=== PATIENT | male | born 1970 | race Caucasian/White ===

== ENCOUNTER 2017-12-26 14:00 | Outpatient (CLI) | payer MEDICAID | END 2017-12-26 14:01 | disposition critical access hospital (66) | LOC: EMS 14:00 | PROVIDERS: ATTEND Surgery | DX: S01.81XA Laceration without foreign body of other part of head, initial encounter (principal); W17.89XA Other fall from one level to another, initial encounter; Y93.H2 Activity, gardening and landscaping; Y92.59 Other trade areas as the place of occurrence of the external cause | CPT/HCPCS: A0425; A0429 ==

== ENCOUNTER 2017-12-26 14:43 | Emergency (ER) | payer MEDICAID ==
[2017-12-26] MEDS ORDERED: TETANUS/DIPHTHERIA/PERTUSSIS 0.5 ML SYRINGE IM ONE (15:15)
--- NOTE | 2017-12-26 15:16 | ED Physician Documentation ---
History of Present Illness - Stated complaint Stated Complaint: GLF - Chief complaint Chief Complaint: General - History obtained from History obtained from: Patient - History of Present Illness Timing: Other (Working and fell backward, hit back of head with poss LOC and amnesia. Mod headache. No N/V.) - Additonal information Additional information: Tetanus status is unknown Review of Systems Constitutional: denies: Fever, Chills Throat: reports: Reviewed and negative Cardiac: reports: Reviewed and negative Respiratory: reports: Reviewed and negative PD PAST MEDICAL HISTORY - Past Medical History Past Medical History: Yes Psych: Depression - Past Surgical History Past Surgical History: Yes - Present Medications Home Medications: Ambulatory Orders Medication Instructions Recorded Confirmed HYDROcod/ACETAM 5/325 [[place] 5/325] 1 - 2 ea PO Q6H PRN #7 tablet 12/26/17 - Allergies Allergies/Adverse Reactions: Allergies Allergy/AdvReac Type Severity Reaction Status Date / Time No Known Drug Allergies Allergy Verified 07/22/16 22:54 - Social History Does the pt smoke?: Yes Smoking Status: Current every day smoker Does the pt drink ETOH?: Yes Does the pt have substance abuse?: No - Immunizations Immunizations are current?: Yes Immunizations: TDAP >10years/unknown - POLST Patient has POLST: No PD ED PE NORMAL - Vitals Vital signs reviewed: Yes - General General: Alert and oriented X 3, No acute distress - HEENT HEENT: PERRL, EOMI, Other (He has a 2 cm occipital laceration) - Neck Neck: Supple, no meningeal sign, No bony TTP - Cardiac Cardiac: RRR, No murmur - Respiratory Respiratory: No respiratory distress, Clear bilaterally - Abdomen Abdomen: Normal bowel sounds, Soft, Non tender - Extremities Extremities: No edema, No calf tenderness / cord - Neuro Neuro: Alert and oriented X 3, Normal speech Eye Opening: Spontaneous Motor: Obeys Commands Verbal: Oriented GCS Score: 15 - Psych Psych: Normal mood, Normal affect Results - Vitals Vitals: Vital Signs - 24 hr 12/26/17 14:48 Temperature 36.5 C Heart Rate 101 H Respiratory 18 Rate Blood Pressure 106/93 H O2 Saturation 97 Oxygen O2 Source Room air - Rads (name of study) CT Head Radiology: EMP read contemporaneously (normal) Procedures - Laceration (location) Occiput Length in cm: 2 Wound type: Linear Anesthesia: Lidocaine 1%, With bicarb Wound Preparation: Irrigated copiously NS Skin layer closure: Lisa (3) Other: Patient tolerated well, Tetanus booster given Complexity: Simple Departure - Departure Disposition: 01 Home, Self Care Clinical Impression: Occipital scalp laceration Qualifiers: Encounter type: initial encounter Qualified Code(s): S01.01XA - Laceration without foreign body of scalp, initial encounter Head injury Qualifiers: Encounter type: initial encounter Qualified Code(s): S09.90XA - Unspecified injury of head, initial encounter Condition: Good Record reviewed to determine appropriate education?: Yes Instructions: ED Head Injury Closed Prescriptions: HYDROcod/ACETAM 5/325 [[place] 5/325] 1 - 2 ea PO Q6H PRN #7 tablet PRN Reason: Pain Comments: Come back for any signs of infection which would include: Redness, swelling, drainage, increased pain, or fevers. Follow-up with your physician in 7-10 days for staple removal.
[2017-12-26] MEDS ORDERED: BUFFERED LIDOCAINE 10 ML SYRINGE SUBQ STA (15:17)
[2017-12-26] MEDS ORDERED: HYDROcod/ACETAM 5/325 MG TABLET PO STA (15:17)
--- NOTE | 2017-12-26 15:34 | CT Report ---
EXAM: CT HEAD EXAM DATE: 12/26/2017 03:24 PM. CLINICAL HISTORY: Head inj. COMPARISON: 08/08/2013. TECHNIQUE: Multiaxial CT images were obtained from the foramen magnum to the vertex. Reformats: Coron al. IV contrast: None. In accordance with CT protocol optimization, one or more of the following dose reduction techniques w ere utilized for this exam: automated exposure control, adjustment of mA and/or KV based on patient s ize, or use of iterative reconstructive technique. FINDINGS: Parenchyma: No intraparenchymal hemorrhage. No evidence of mass, midline shift, or CT findings of inf arction. Sexton-white differentiation is distinct. Extraaxial Spaces: Normal for age. No subdural or epidural collections. Ventricles: Normal in size and position. Sinuses and Orbits: Imaged paranasal sinuses, orbits, and mastoids show no significant abnormality. Bones: Unremarkable. Other: None. IMPRESSION: Normal head CT. [facility] Referring Provider Line: [phone] SITE ID: [id number]
[2017-12-26 16:33] VITALS: BP 121/86
== END 2017-12-26 16:35 | disposition home or self-care (01) ==
LOC: EDUNIT# → ED 14:43
DX: S01.01XA Laceration without foreign body of scalp, initial encounter (principal); S09.90XA Unspecified injury of head, initial encounter; W01.0XXA Fall on same level from slipping, tripping and stumbling without subsequent striking against object, initial encounter; Y93.H2 Activity, gardening and landscaping; Y99.0 Civilian activity done for income or pay; Z23 Encounter for immunization; F17.200 Nicotine dependence, unspecified, uncomplicated
CPT/HCPCS: 12001; 70450; 90471; 90715; 99283; A9270

== ENCOUNTER 2018-03-01 15:35 | Outpatient (CLI) | payer OTHER | END 2018-03-01 15:36 | disposition critical access hospital (66) | LOC: EMS 15:35 | PROVIDERS: ATTEND Surgery | DX: S49.92XA Unspecified injury of left shoulder and upper arm, initial encounter (principal); W18.39XA Other fall on same level, initial encounter; Y92.032 Bedroom in apartment as the place of occurrence of the external cause | CPT/HCPCS: A0425; A0427 ==

== ENCOUNTER 2018-03-01 15:53 | Emergency (ER) | payer MEDICAID, OTHER ==
--- NOTE | 2018-03-01 16:29 | ED Physician Documentation ---
PD HPI UPPER EXT INJURY - Stated complaint Stated Complaint: HBD/FALL - Chief complaint Chief Complaint: Ext Problem - History obtained from History obtained from: Patient, EMS - History of Present Illness Location: Left, Shoulder Type of injury: Fall Where injury occurred: Home Timing - onset: Today Timing - duration: Hours (1) Timing - details: Abrupt onset Pain level max: 10 Pain level now: 10 Improved by: Rest Worsened by: Moving, Palpating Associated symptoms: No: Weakness, Numbness, Tingling, Swelling, Discolored Contributing factors: No: Anticoagulated, Prior ortho surgery Similar symptoms before: Has not had sx before Recently seen: Not recently seen - Additonal information Additional information: states that he fell against the wall and hurt his left shoulder. now increased pain. Review of Systems Ten Systems: 10 systems reviewed and negative Constitutional: denies: Fever, Chills Nose: denies: Rhinorrhea / runny nose, Congestion Throat: denies: Sore throat Respiratory: denies: Cough GI: denies: Nausea, Vomiting, Diarrhea Musculoskeletal: denies: Neck pain, Back pain Neurologic: denies: Focal weakness, Numbness, Confused, Headache, Head injury, LOC PD PAST MEDICAL HISTORY - Past Medical History Past Medical History: Yes Psych: Depression Other Past Medical History: Patient denies illness - Past Surgical History Past Surgical History: Yes - Present Medications Home Medications: Ambulatory Orders Medication Instructions Recorded Confirmed Hydrocodone/Acetaminophen 1 - 2 each PO Q6H PRN #14 tablet 03/01/18 [Hydrocodon-Acetaminophen 5-325] - Allergies Allergies/Adverse Reactions: Allergies Allergy/AdvReac Type Severity Reaction Status Date / Time No Known Drug Allergies Allergy Verified 03/01/18 16:05 - Living Situation Living Arrangement: reports: At home - Social History Does the pt smoke?: Yes Smoking Status: Current every day smoker Does the pt drink ETOH?: Yes ETOH Use: Beer Does the pt have substance abuse?: No - Immunizations Immunizations are current?: Yes Immunizations: TDAP >10years/unknown - POLST Patient has POLST: No PD ED PE NORMAL - Vitals Vital signs reviewed: Yes - General General: Alert and oriented X 3, No acute distress - HEENT HEENT: Atraumatic, PERRL, Moist mucous membranes - Neck Neck: Supple, no meningeal sign, No bony TTP - Cardiac Cardiac: RRR, Strong equal pulses - Respiratory Respiratory: No respiratory distress, Clear bilaterally - Abdomen Abdomen: Soft, Non tender, Non distended - Back Back: No spinal TTP - Derm Derm: Warm and dry - Extremities Extremities: Other (deformity and TTP over the L shoulder. NVI. axillary nerve intact) - Neuro Neuro: Alert and oriented X 3, wound treatment rn 2-12 intact, No motor deficit, No sensory deficit, Normal speech - Psych Psych: Normal mood, Normal affect Results - Vitals Vitals: Oxygen O2 Source Nasal cannula - Rads (name of study) L shoulder xray 1 Radiology: Prelim report reviewed, EMP read contemporaneously, See rad report ( Anterior shoulder dislocation with comminuted fracturing of the proximal humerus. Bony Bankart lesion not excluded) L shoulder xray 2 Radiology: Prelim report reviewed, EMP read contemporaneously, See rad report ( persistent dislocation) L shoulder xray 3 Radiology: Prelim report reviewed, EMP read contemporaneously, See rad report ( Successful reduction of the shoulder as well as the acute Hill-Sachs fracture fragments.) Procedures - Reduction Body part reduced: Left, Shoulder Fracture or dislocation: Dislocation (with hill sachs fracture) Anesthesia: Conscious sedation, Dilaudid, Propofol Shoulder reduction technique: Scapular manipulation, [place] / ext rotation, Traction - counter tract Reduction aftercare: Patient tolerated well, Unable to reduce - Procedural sedation Sedation prep: Informed consent, Time out completed, Last meal (0900), PE performed, AHA 1 - healthy, IV O2 monitor, ET CO2 monitor, RT present Sedation medications: propofol, given by MD Patient status during sedation: Vitals remained stable, Maintained airway, Recovered uneventfully, Other (no complications) Sedation recovery: Recovered uneventfully, Other (time in sedation 15 mintues) PD MEDICAL DECISION MAKING - ED course Complexity details: reviewed results, re-evaluated patient, considered differential, d/w patient, d/w [employer] consultant ED course: Patient is a 47-year-old male who presents to the emergency department with a left shoulder dislocation and Hill-Sachs deformity. Discussed the case with Dr. Meneses and attempted a closed reduction with propofol. Unable to reduce the shoulder. Therefore Dr. Meneses came in and had sedation and paralysis with anesthesia present. The shoulder was able to be reduced by Dr. Meneses. Placed in a sling. Neurovascularly intact including the axillary nerve. Will follow up with orthopedics. Patient counseled regarding signs and symptoms for which I believe and urgent re-evaluation would be necessary. Patient with good understanding of and agreement to plan and is comfortable going home at this time This document was made in part using voice recognition software. While efforts are made to proofread this document, sound alike and grammatical errors may occur. - Sepsis Event Vital Signs: Oxygen O2 Source Nasal cannula Departure - Departure Disposition: 01 Home, Self Care Clinical Impression: Shoulder dislocation Qualifiers: Encounter type: initial encounter Laterality: left Qualified Code(s): S43.005A - Unspecified dislocation of left shoulder joint, initial encounter Fracture of humeral head, closed Qualifiers: Encounter type: initial encounter Laterality: left Qualified Code(s): S42.292A - Other displaced fracture of upper end of left humerus, initial encounter for closed fracture Condition: Good Instructions: ED Dislocation Shoulder Redu Follow-Up: [facility] [Provider Group] Jay Meneses MD [Provider Admit Priv/Credential] - Within 1 week Prescriptions: Hydrocodone/Acetaminophen [Hydrocodon-Acetaminophen 5-325] 1 - 2 each PO Q6H PRN #14 tablet PRN Reason: pain Comments: Wear the sling until released by Dr. Meneses. Return if you worsen. Do not drink alcohol or drive while on narcotic pain medicine. Note that many narcotic pain relievers also contain tylenol/acetaminophen. Please ensure that your total dose of acetaminophen from all sources does not exceed 3 grams (3000mg) per day. You may constipated on this medication, take a stool softener such as "Colace" twice a day while you are on it. Also recommend a myqd-iql-[id number] laxative such as senna or MiraLAX any day that you do not have a bowel movement. If you received narcotic pain medication in the emergency department, do not drive or operate machinery for the next 24 hours. Discharge Date/Time: 03/01/18 21:19
[2018-03-01] MEDS ORDERED: HYDROmorphone 1 MG/ML CARPUJECT IVP STA ×2 (16:54→19:53)
--- NOTE | 2018-03-01 17:12 | XRAY Report ---
Procedure Date: 03/01/2018 Accession Number: [id number] / [id number] Procedure: XR - Shoulder 2 View LT CPT Code: FULL RESULT: EXAM: LEFT SHOULDER RADIOGRAPHY EXAM DATE: 03/01/2018 04:44 PM. CLINICAL HISTORY: FALL, LEFT SHOULDER PAIN. COMPARISON: None. TECHNIQUE: 2 views. FINDINGS: There is an anterior shoulder sulcation with comminuted fracturing of the proximal humerus. Bony Bankart lesion not completely excluded. IMPRESSION: There is an anterior shoulder sulcation with comminuted fracturing of the proximal humerus. Bony Bankart lesion not completely excluded. [facility]
[2018-03-01] MEDS ORDERED: PROPOFOL 200 MG/20 ML VIAL IVP ONE ×2 (19:30→20:27)
[2018-03-01] MEDS ORDERED: PROPOFOL 200 MG/20 ML VIAL IVP STA (19:35)
--- NOTE | 2018-03-01 19:55 | XRAY Report ---
Procedure Date: 03/01/2018 Accession Number: [id number] / [id number] Procedure: XR - Shoulder 1 View LT CPT Code: FULL RESULT: EXAM: LEFT SHOULDER RADIOGRAPHY. EXAM DATE: 03/01/2018 07:48 PM. CLINICAL HISTORY: Dislocation, post reduction?. COMPARISON: 02/21/2018. TECHNIQUE: 1 views. FINDINGS: Bones: Cortical irregularity of the inferior margin of the glenoid is noted. There is a large displaced fracture fragment of the left humerus greater tuberosity. The left acromion and scapula are otherwise intact. Joints: Persistent anterior inferior dislocation of the left glenohumeral joint. Soft tissues: The visualized hemithorax is unremarkable. No soft tissue swelling. IMPRESSION: Persistent anterior left humerus fracture dislocation. Large Hill-Sachs deformity and displaced fragment. [facility]
[2018-03-01] MEDS ORDERED: HYDROmorphone 1 MG/ML CARPUJECT ONE (20:06)
[2018-03-01] MEDS ORDERED: MIDAZOLAM 2 MG/2 ML VIAL IVP ONE (20:27)
[2018-03-01] MEDS ORDERED: SUCCINYLCHOLINE 200 MG/10 ML VIAL IVP ONE (20:27)
[2018-03-01] MEDS ORDERED: fentaNYL 100 MCG/2 ML VIAL IVP ONE (20:27)
[2018-03-01] MEDS ORDERED: BUPIVACAINE 0.25% PF 30 ML VIAL ONE (20:29)
[2018-03-01] MEDS ORDERED: HYDROcod/ACETAM 5/325 MG TABLET PO STA (20:57)
[2018-03-01 21:11] VITALS: BP 107/81
--- NOTE | 2018-03-01 21:23 | XRAY Report ---
Procedure Date: 03/01/2018 Accession Number: [id number] / [id number] Procedure: XR - Shoulder 1 View LT CPT Code: FULL RESULT: EXAM: LEFT SHOULDER RADIOGRAPHY. EXAM DATE: 03/01/2018 08:47 PM. CLINICAL HISTORY: Post reduction. COMPARISON: Earlier today at 1936. TECHNIQUE: 1 views. FINDINGS: Bones: Interval reduction of the fracture fragments involving the lateral aspect left humeral head and greater tuberosity. Joints: Interval reduction of the left humeral head. Soft tissues: Marked edema adjacent to the fractures. IMPRESSION: Successful reduction of the shoulder as well as the acute Hill-Sachs fracture fragments. [facility]
--- NOTE | 2018-03-02 13:18 | CONSULTATION NOTE ---
DATE OF SERVICE: 03/01/2018 Physician: Jay Meneses MD REQUESTING PHYSICIAN: Dr. Weldon REASON FOR CONSULTATION: Irreducible left shoulder fracture dislocation. HISTORY OF PRESENT ILLNESS: Patient is a 47-year-old male who, in an intoxicated state, suffered a ground-level fall in his home and fracture dislocated his shoulder. He was in the emergency room undergoing closed treatment that was unsuccessful utilizing propofol, and I was asked to become involved. He never had a prior shoulder dislocation. He had severe pain, and his shoulder was in spasm. The examination confirmed these findings and the fact that he was neurovascularly intact and had mild crepitus in his shoulder with movement, and he was most comfortable in abduction, slight internal rotation and traction. Impression was that he had a fracture dislocation of his shoulder with tuberosity fragments displaced and very small, with no damage evident of the glenoid. Recommendation was that patient undergo closed reduction. Fortunately, Anesthesia was available to perform both conscious sedation and use of paralytics to allow deep sedation of the patient, and when this was accomplished, patient was able to have a traction closed reduction that was somewhat difficult in spite of anesthesia, but once reduced, patient's shoulder remained stable through range of motion without any severe crepitus and with minimal evidence of recurrent instability. The shoulder was comfortable at the side and was placed into a sling and swathe. The patient tolerated it well. He awakened from his anesthetic state in the emergency room and was fairly alert and breathing well and not having any respiratory issues secondary to the anesthesia. PLAN: The plan was for him to be discharged to home, follow up in the clinic within 2 weeks, to remain in a sling, and with expectations of nonoperative course of further healing of his tuberosity. TD: 03/02/2018 12:07 GARRETT
== END 2018-03-01 21:19 | disposition home or self-care (01) ==
LOC: ED 15:53
DX: S42.202A Unspecified fracture of upper end of left humerus, initial encounter for closed fracture (principal); S42.252A Displaced fracture of greater tuberosity of left humerus, initial encounter for closed fracture; W18.30XA Fall on same level, unspecified, initial encounter; Y92.009 Unspecified place in unspecified non-institutional (private) residence as the place of occurrence of the external cause; F17.200 Nicotine dependence, unspecified, uncomplicated
CPT/HCPCS: 23605; 73020; 73030; 94770; 96374; 99283; A9270; J0330; J1170; 23650

== ENCOUNTER 2018-03-10 20:34 | Emergency (ER) | payer OTHER ==
[2018-03-10 20:43] VITALS: BP 126/91
--- NOTE | 2018-03-10 21:11 | ED Physician Documentation ---
History of Present Illness - Stated complaint Stated Complaint: SHOULDER PX - Chief complaint Chief Complaint: Ext Problem - History obtained from History obtained from: Patient - Additonal information Additional information: 47-year-old male presents to the emergency department with left shoulder pain. The patient recently dislocated his shoulder and sustained a fracture of the humeral head. The patient had a reduction and is scheduled to follow-up with orthopedics in 2 weeks. The patient used his left shoulder yesterday to perform tasks around the house and since then has noticed increased bruising and pain does not improved with his hydrocodone. No other injury. No numbness or tingling. No motor or sensory changes. No other acute injuries. Symptoms are described as moderate. No radiation of symptoms. No other associated symptoms Review of Systems Constitutional: denies: Fever Ears: denies: Ear pain Cardiac: denies: Chest pain / pressure Musculoskeletal: reports: Extremity pain (Left shoulder pain). denies: Neck pain Neurologic: denies: Generalized weakness PD PAST MEDICAL HISTORY - Past Medical History Past Medical History: Yes Psych: Depression - Past Surgical History Past Surgical History: Yes - Present Medications Home Medications: Ambulatory Orders Medication Instructions Recorded Confirmed Cbd Oil 5 drops PO DAILY 03/10/18 Ibuprofen 200 mg PO 03/10/18 - Allergies Allergies/Adverse Reactions: Allergies Allergy/AdvReac Type Severity Reaction Status Date / Time acetaminophen [From Vicodin] AdvReac Itching Verified 03/10/18 20:51 hydrocodone [From Vicodin] AdvReac Itching Verified 03/10/18 20:51 morphine AdvReac Itching Verified 03/10/18 20:40 - Social History Does the pt smoke?: Yes Smoking Status: Current every day smoker Does the pt drink ETOH?: Yes ETOH Use: Beer Does the pt have substance abuse?: No - Immunizations Immunizations are current?: Yes Immunizations: TDAP current <10years - POLST Patient has POLST: No PD ED PE NORMAL - General General: Alert and oriented X 3, No acute distress - HEENT HEENT: Atraumatic, PERRL - Cardiac Cardiac: RRR - Respiratory Respiratory: No respiratory distress - Extremities Extremities: Other (The patient has tenderness to palpation of the left shoulder , there is no obvious deformity, no erythematous changes, no skin changes. The patient has normal range of motion in of the left elbow. The wrist has normal range of motion, no tenderness of the wrist or elbow or left collarbone. The patient has a normal radial pulse in the left extremity. Normal sensation. There is mild ecchymosis in the left upper extremity.) - Neuro Neuro: Alert and oriented X 3 - Psych Psych: Normal mood Results - Vitals Vitals: Vital Signs - 24 hr 03/10/18 20:37 Temperature 36.4 C L Heart Rate 92 Respiratory 16 Rate Blood Pressure 126/91 H O2 Saturation 99 Oxygen O2 Source Room air - Rads (name of study) No standard instances Radiology: See rad report, Other (Impression: 1 nondisplaced mildly comminuted fracture through the greater tuberosity of the proximal left humerus. Appearance is similar to postreduction of 03/01/2018. 2. no new abnormality seen ) PD MEDICAL DECISION MAKING - ED course Complexity details: other (The patient's injury seems to be secondary to overuse of a fractured joint. I have advised the patient to continue using his sling. I advised follow-up with orthopedics for definitive management. I discussed warning signs and recommended returning to the emergency department immediately for any worsening or new concerns.) - Sepsis Event Vital Signs: Vital Signs - 24 hr 03/10/18 20:37 Temperature 36.4 C L Heart Rate 92 Respiratory 16 Rate Blood Pressure 126/91 H O2 Saturation 99 Oxygen O2 Source Room air Departure - Departure Disposition: 01 Home, Self Care Clinical Impression: Shoulder pain, acute Qualifiers: Laterality: unspecified laterality Qualified Code(s): M25.519 - Pain in unspecified shoulder Fracture of humeral head, closed Qualifiers: Encounter type: initial encounter Laterality: left Qualified Code(s): S42.292A - Other displaced fracture of upper end of left humerus, initial encounter for closed fracture Condition: Good Instructions: ED Fx Upper Ext Follow-Up: Jay Meneses MD [Provider Admit Priv/Credential] - Within 1 week Comments: Please return to the emergency department for worsening symptoms or concerns
--- NOTE | 2018-03-10 22:13 | XRAY Report ---
Procedure Date: 03/10/2018 Accession Number: [id number] / [id number] Procedure: XR - Shoulder 3 View LT CPT Code: FULL RESULT: EXAM: LEFT SHOULDER RADIOGRAPHY EXAM DATE: 03/10/2018 09:30 PM. CLINICAL HISTORY: Shoulder pain. COMPARISON: SHOULDER 1 VIEW LT 03/01/2018. TECHNIQUE: 3 views. FINDINGS: Bones: Nondisplaced mildly comminuted fracture through the greater tuberosity of the proximal left humerus. Joints: The glenohumeral and acromioclavicular joints are normal. Soft tissues: Small calcifications in the region of the distal supraspinatus tendon. IMPRESSION: 1.Nondisplaced mildly comminuted fracture through the greater tuberosity of the proximal left humerus. Appearance is similar to the post reduction view of 03/01/2018. 2. No new abnormality seen in the shoulder. [facility]
== END 2018-03-10 22:27 | disposition home or self-care (01) ==
LOC: ED 20:34
DX: S42.255A Nondisplaced fracture of greater tuberosity of left humerus, initial encounter for closed fracture (principal); F17.200 Nicotine dependence, unspecified, uncomplicated
CPT/HCPCS: 99282

== ENCOUNTER 2020-09-09 16:02 | Emergency (ER) | payer MEDICAID, OTHER ==
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
[2020-09-09] MEDS ORDERED: BACITRACIN ZINC OINT 1 PACKET TOP STA (16:46)
[2020-09-09] MEDS ORDERED: KETOROLAC 60 MG/2 ML VIAL IM STA (16:49)
[2020-09-09 17:22] VITALS: BP 135/95
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
== END 2020-09-09 18:00 | disposition home or self-care (01) ==
LOC: ED 16:02
DX: T23.232A Burn of second degree of multiple left fingers (nail), not including thumb, initial encounter (principal); X04.XXXA Exposure to ignition of highly flammable material, initial encounter; X06.2XXA Exposure to ignition of other clothing and apparel, initial encounter; Y93.89 Activity, other specified; F17.200 Nicotine dependence, unspecified, uncomplicated
CPT/HCPCS: 96372; 99283; A9270

== ENCOUNTER 2024-02-09 15:50 | Emergency (ER) | payer MEDICAID ==
[2024-02-09 16:04] VITALS: O2SAT 99
[2024-02-09] MEDS: BUFFERED LIDOCAINE 10 ML SYRINGE SUBQ STA (16:06)
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
--- NOTE | 2024-02-09 16:54 | XRAY Report ---
PROCEDURE: Foot 3+V LT INDICATIONS: poss fb L foot TECHNIQUE: 3 views of the foot were acquired. COMPARISON: None. FINDINGS: Bones: No fractures or dislocations. No suspicious bony lesions. Soft tissues: No tibiotalar joint effusion. Achilles tendon appears normal. No radiopaque soft tis saloni foreign body identified. IMPRESSION: Left foot without acute osseous abnormalities. No radiopaque soft tissue foreign body identified. Reviewed by: Chauncey Mabry MD on 02/09/2024 4:53 PM PDT Approved by: Chauncey Mabry MD on 02/09/2024 4:53 PM PDT Station ID: [id number]
[2024-02-09 17:09] VITALS: BP 136/97
== END 2024-02-09 17:03 | disposition home or self-care (01) ==
LOC: ED 15:50
DX: S90.852A Superficial foreign body, left foot, initial encounter (principal); W22.8XXA Striking against or struck by other objects, initial encounter; Y92.000 Kitchen of unspecified non-institutional (private) residence as the place of occurrence of the external cause; F17.200 Nicotine dependence, unspecified, uncomplicated
CPT/HCPCS: 28190; 99283